=== PATIENT | male | born 1955 | race Caucasian/White ===

== ENCOUNTER 2018-01-13 10:19 | Emergency (ER) | payer OTHER ==
[2018-01-13] MEDS: HYDROCODONE/APAP (5/325) TAB PO (11:08)
== END 2018-01-13 12:17 | disposition home or self-care (01) ==
LOC: FTE 10:19
DX: B02.9 Zoster without complications (principal); K40.90 Unilateral inguinal hernia, without obstruction or gangrene, not specified as recurrent
CPT/HCPCS: 72100; 99284-25